=== PATIENT | female | born 1970 | race Caucasian/White ===

== ENCOUNTER 2020-01-30 09:51 | Inpatient (IN) | payer OTHER ==
--- NOTE | 2020-01-30 10:04 | BHS.RME ---
Substance Use & Tx History - Substance Use History Alcohol Substance amount: 6-8 beers 24 oz Frequency of use: Daily Substance route: Oral Date of Last Use: 01/30/20 Marijuana/Hashish Substance amount: 4-5 joints Frequency of use: Daily Substance route: Smoking Date of Last Use: 01/29/20 Cocaine- Powder Substance amount: 1 line Frequency of use: Once a month Substance route: Inhalation (ex: sniffing or snorting) Date of Last Use: 01/28/20 Nicotine Substance amount: 1/2 pack Frequency of use: Daily Substance route: Smoking Date of Last Use: 01/30/20 Physical/Psych/Mental Status - Behavior General Behavior: Increased activity (restlessness, agitation) Eye Contact: Normal - Cooperativeness Cooperativeness: Cooperative - Thinking Thought Processes: Tight, Logical, Goal Directed - Physical Health Problems Is patient presently having any pain?: No Does patient presently have any injuries (include location): No Does patient currently have a fever: No Is patient : No CIWA Nausea/Vomitin-No Nausea/No Vomiting Muscle Tremors: 1-None Visible, but [place] Anxiety: 2 Agitation: 2 Paroxysmal Sweats: 4-Forehead w/Sweat Beads Orientation: 0-Oriented Tacttile Disturbances: 1-Very Mild Itch/Numbness Auditory Disturbances: 0-None Visual Disturbances: 0-None Headache: 0-None Present (drank prior to coming) CIWA-Ar Total Score: 10
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
[2020-01-30] MEDS ORDERED: BISMUTH SUBSALICYLATE 524 MG/30 ML UD PO PRN (11:43)
[2020-01-30] MEDS ORDERED: NICOTINE POLACRILEX 2 MG GUM BUC PRN (11:43)
[2020-01-30] MEDS ORDERED: MAGNESIUM CITRATE 300 ML BOTTLE PO PRN (11:43)
[2020-01-30] MEDS ORDERED: ACETAMINOPHEN 325 MG TABLET (FP) PO PRN ×2 (11:43)
[2020-01-30] MEDS ORDERED: ONDANSETRON *ODT* 4 MG TABLET SL PRN (11:43)
[2020-01-30] MEDS ORDERED: IBUPROFEN 400 MG TABLET (FP) PO PRN (11:43)
[2020-01-30] MEDS ORDERED: MAG HYDROX/AL HYDROX/SIMETH 30 ML UNIT-DOSE CUP PO PRN (11:43)
[2020-01-30] MEDS ORDERED: MENTHOL/PHENOL 1 EACH UD MM PRN (11:43)
[2020-01-30] MEDS ORDERED: MAGNESIUM HYDROX 2400MG/30ML ORAL SUSPENSION 30 ML CUP PO PRN (11:43)
[2020-01-30 12:00] VITALS: BMI 27.6
--- NOTE | 2020-01-30 13:14 | EKG ---
Test Reason : Blood Pressure : / mmHG Vent. Rate : 078 BPM Atrial Rate : 078 BPM P-R Int : 154 ms QRS Dur : 100 ms QT Int : 428 ms P-R-T Axes : 058 -30 022 degrees QTc Int : 487 ms NORMAL SINUS RHYTHM LEFT AXIS DEVIATION PROLONGED QT ABNORMAL ECG NO PREVIOUS ECGS AVAILABLE Confirmed by Juan Urena ([id number]) on 01/30/2020 1:14:38 PM Referred By: Confirmed By:Juan Urena
[2020-01-30] MEDS ORDERED: TUBERCULIN PPD 5 TU/0.1ML VIAL ID ONE (13:50)
[2020-01-30] MEDS: chlordiazePOXIDE HCL 25 MG CAPSULE PO PRN (13:51)
[2020-01-30] MEDS: NICOTINE 21 MG/24 HOURS TOPICAL PATCH TD SCH (13:51)
[2020-01-30] MEDS: hydrOXYzine PAMOATE 25 MG CAPSULE (FP) PO SCH ×3 (13:51→22:16)
[2020-01-30] MEDS: ALBUTEROL SO4 HFA INHALER IH SCH ×2 (14:41→22:18)
[2020-01-30 15:07] LABS: HEMOGLOBIN 13.4 GM/dL (10.7-15.3); MCH 35.9 pg (25.7-33.7); MCHC 34.3 g/dl (32.0-36.0); MEAN CELL VOLUME 104.7 fl (80-96); MEAN PLT VOLUME 7.3 fl (7.5-11.1); PLATELET COUNT 288 K/MM3 (134-434); RBC 3.73 M/mm3 (3.60-5.2); RDW 14.2 % (11.6-15.6); WHITE BLOOD COUNT 8.4 K/mm3 (4.0-10.0)
[2020-01-30 15:12] LABS: ALBUMIN 3.6 g/dl (3.4-5.0); BILIRUBIN,TOTAL 0.6 mg/dL (0.2-1); BLOOD UREA NITROGEN 5.6 mg/dL (7-18); CALCIUM 8.9 mg/dL (8.5-10.1); CREATININE 1.3 mg/dL (0.55-1.3); TOT PROT 7.3 g/dl (6.4-8.2)
[2020-01-30] MEDS: chlordiazePOXIDE HCL 25 MG CAPSULE PO SCH ×2 (17:49→22:16)
[2020-01-30] MEDS ORDERED: MELATONIN 5 MG TABLETS PO SCH (22:00)
[2020-01-30] MEDS: THIAMINE HCL 100 MG TABLET (FP) PO SCH (22:16)
[2020-01-31] MEDS: chlordiazePOXIDE HCL 25 MG CAPSULE PO SCH ×4 (06:43→22:03)
[2020-01-31] MEDS: hydrOXYzine PAMOATE 25 MG CAPSULE (FP) PO SCH ×6 (06:44→22:03)
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
--- NOTE | 2020-01-31 10:50 | PN ---
[facility] CIWA - CIWA Score Nausea/Vomitin-No Nausea/No Vomiting Muscle Tremors: 3 Anxiety: 4-Mod. Anxious/Guarded Agitation: 3 Paroxysmal Sweats: 1-Minimal Palms Moist Orientation: 0-Oriented Tacttile Disturbances: 0-None Auditory Disturbances: 0-None Visual Disturbances: 0-None Headache: 0-None Present CIWA-Ar Total Score: 11 BHS Progress Note (SOAP) Subjective: Pt is a 49 y/o admitted to detox for alcohol withdrawal sx. Pt is on Librium taper. c/o Tremors anxiety fatigue Objective: 01/31/20 10:52 Vital Signs - 24 hr 01/30/20 01/30/20 01/30/20 11:54 11:56 14:02 Temperature 96.7 F L 97.3 F L Pulse Rate 83 78 Respiratory 18 18 Rate Blood Pressure 142/95 155/86 O2 Sat by Pulse 99 97 Oximetry (%) 01/30/20 01/30/20 01/31/20 17:14 21:46 05:39 Temperature 98.0 F Pulse Rate 69 68 58 L Respiratory 20 18 18 Rate Blood Pressure 147/81 151/74 117/60 O2 Sat by Pulse 96 98 98 Oximetry (%) Laboratory Tests 01/30/20 01/30/20 01/30/20 12:20 12:20 12:20 WBC 8.4 RBC 3.73 Hgb 13.4 Hct 39.0 MCV 104.7 H MCH 35.9 H MCHC 34.3 RDW 14.2 Plt Count 288 MPV 7.3 L Sodium 142 Potassium 4.0 Chloride 111 H Carbon Dioxide 19 L Anion Gap 11 BUN 5.6 L Creatinine 1.3 Est GFR (CKD-EPI)AfAm 55.40 Est GFR (CKD-EPI)NonAf 47.80 Random Glucose 107 H Calcium 8.9 Total Bilirubin 0.6 AST 52 H ALT 47 Alkaline Phosphatase 118 H Total Protein 7.3 Albumin 3.6 Syphilis Serology Non-reactive HIV Ag/Ab Combo Qual 01/30/20 12:20 WBC RBC Hgb Hct MCV MCH MCHC RDW Plt Count MPV Sodium Potassium Chloride Carbon Dioxide Anion Gap BUN Creatinine Est GFR (CKD-EPI)AfAm Est GFR (CKD-EPI)NonAf Random Glucose Calcium Total Bilirubin AST ALT Alkaline Phosphatase Total Protein Albumin Syphilis Serology HIV Ag/Ab Combo Qual Negative covid-19 pending alert o x 3 nad seen in bed at rounds but communicated needs coherently. Assessment: 01/31/20 10:52 withdrawal sx Plan: cont detox increase po fluids maintain safety
[2020-01-31] MEDS: NICOTINE 21 MG/24 HOURS TOPICAL PATCH TD SCH (11:00)
[2020-01-31] MEDS: ALBUTEROL SO4 HFA INHALER IH SCH (11:00)
[2020-01-31] MEDS: PRENATAL VITAMINS W/ FOLIC ACID TABLET (FP) PO SCH (11:00)
[2020-01-31] MEDS ORDERED: ALBUTEROL SO4 HFA INHALER IH PRN (13:52)
[2020-01-31] MEDS: chlordiazePOXIDE HCL 25 MG CAPSULE PO PRN (14:19)
[2020-01-31] MEDS ORDERED: MELATONIN 5 MG TABLETS PO PRN (14:45)
[2020-01-31] MEDS: METHOCARBAMOL 500 MG TABLET PO PRN (22:03)
[2020-01-31] MEDS: THIAMINE HCL 100 MG TABLET (FP) PO SCH (22:03)
[2020-02-01 06:48] VITALS: BP 139/75; PULSE 66; TEMP 97.8
[2020-02-01] MEDS: chlordiazePOXIDE HCL 25 MG CAPSULE PO SCH ×2 (07:02→11:09)
[2020-02-01] MEDS: hydrOXYzine PAMOATE 25 MG CAPSULE (FP) PO SCH ×3 (07:02→13:56)
[2020-02-01] MEDS: NICOTINE 21 MG/24 HOURS TOPICAL PATCH TD SCH (11:09)
[2020-02-01] MEDS: PRENATAL VITAMINS W/ FOLIC ACID TABLET (FP) PO SCH (11:10)
[2020-02-01] MEDS: METHOCARBAMOL 500 MG TABLET PO PRN (11:11)
--- NOTE | 2020-02-01 13:30 | PN ---
S CIWA - CIWA Score Nausea/Vomitin-No Nausea/No Vomiting (diarrhea) Muscle Tremors: 3 Anxiety: 4-Mod. Anxious/Guarded Agitation: 0-Normal Activity Paroxysmal Sweats: 2 Orientation: 0-Oriented Tacttile Disturbances: 0-None Auditory Disturbances: 0-None Visual Disturbances: 0-None Headache: 0-None Present CIWA-Ar Total Score: 9 BHS Progress Note (SOAP) Subjective: c/o body aches all over sweats chills diarrhea Objective: 02/01/20 13:26 Vital Signs - 24 hr 01/31/20 01/31/20 01/31/20 16:50 20:25 21:00 Temperature 97 F L 96.6 F L Pulse Rate 75 75 Respiratory 20 18 Rate Blood Pressure 144/73 142/78 O2 Sat by Pulse 98 98 Oximetry (%) 02/01/20 06:03 Temperature 97.8 F Pulse Rate 66 Respiratory 18 Rate Blood Pressure 139/75 O2 Sat by Pulse 98 Oximetry (%) Laboratory Tests 01/30/20 01/30/20 01/30/20 12:20 12:20 12:20 WBC 8.4 RBC 3.73 Hgb 13.4 Hct 39.0 MCV 104.7 H MCH 35.9 H MCHC 34.3 RDW 14.2 Plt Count 288 MPV 7.3 L Sodium 142 Potassium 4.0 Chloride 111 H Carbon Dioxide 19 L Anion Gap 11 BUN 5.6 L Creatinine 1.3 Est GFR (CKD-EPI)AfAm 55.40 Est GFR (CKD-EPI)NonAf 47.80 Random Glucose 107 H Calcium 8.9 Total Bilirubin 0.6 AST 52 H ALT 47 Alkaline Phosphatase 118 H Total Protein 7.3 Albumin 3.6 Syphilis Serology Non-reactive COVID-19 ([facility]) HIV Ag/Ab Combo Qual 01/30/20 01/30/20 12:20 12:20 WBC RBC Hgb Hct MCV MCH MCHC RDW Plt Count MPV Sodium Potassium Chloride Carbon Dioxide Anion Gap BUN Creatinine Est GFR (CKD-EPI)AfAm Est GFR (CKD-EPI)NonAf Random Glucose Calcium Total Bilirubin AST ALT Alkaline Phosphatase Total Protein Albumin Syphilis Serology COVID-19 ([facility]) Not detected HIV Ag/Ab Combo Qual Negative covid-19 not detected alert o x 3 nad oob ambulating with steady gait Assessment: 02/01/20 13:28 withdrawal sx Plan: cont detox increase po fluids maintain safety Pt reports primary care with [facility].
[2020-02-01] MEDS: chlordiazePOXIDE HCL 25 MG CAPSULE PO PRN (13:56)
[2020-02-01 20:16] LABS: URINE APPEARANCE CLEAR; URINE BILIRUBIN NEGATIVE (NEGATIVE); URINE COLOR YELLOW; URINE GLUCOSE (UA) NEGATIVE (NEGATIVE); URINE KETONE NEGATIVE (NEGATIVE); URINE LEUK ESTERASE NEGATIVE (NEGATIVE); URINE NITRITE NEGATIVE (NEGATIVE); URINE PROTEIN NEGATIVE (NEGATIVE); URINE UROBILINOGEN 0.2 mg/dL (0.2-1.0)
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
[2020-02-02] MEDS ORDERED: chlordiazePOXIDE HCL 10 MG CAPSULE PO PRN
[2020-02-02] MEDS ORDERED: chlordiazePOXIDE HCL 10 MG CAPSULE PO SCH (05:00)
[2020-02-03] MEDS ORDERED: chlordiazePOXIDE HCL 10 MG CAPSULE PO SCH (05:00)
[2020-02-04] MEDS ORDERED: chlordiazePOXIDE HCL 10 MG CAPSULE PO ONE (05:00)
== END 2020-02-01 16:00 | disposition left against medical advice (07) | DRG 894 ==
LOC: YASAS 09:51 → Y5N DETOX 12:59
PROVIDERS: ADMIT Allergy & Immunology; ATTEND Allergy & Immunology
PROC: HZ2ZZZZ Detoxification Services for Substance Abuse Treatment (ICD-10-PCS; principal; 2020-01-30)
DX: F10.230 Alcohol dependence with withdrawal, uncomplicated (principal); F14.20 Cocaine dependence, uncomplicated; F19.282 Other psychoactive substance dependence with psychoactive substance-induced sleep disorder; F12.20 Cannabis dependence, uncomplicated; F17.210 Nicotine dependence, cigarettes, uncomplicated; F19.24 Other psychoactive substance dependence with psychoactive substance-induced mood disorder; F41.9 Anxiety disorder, unspecified; F34.1 Dysthymic disorder; J45.909 Unspecified asthma, uncomplicated; K58.9 Irritable bowel syndrome, unspecified; Z62.810 Personal history of physical and sexual abuse in childhood; Z98.890 Other specified postprocedural states; Z87.890 Personal history of sex reassignment; Z88.8 Allergy status to other drugs, medicaments and biological substances
CPT/HCPCS: 36415; 80053; 81003; 85027; 86780; 87389; 93005; 93010; U0003